=== PATIENT | female | born 1990 | race Caucasian/White ===

== ENCOUNTER → 2025-03-01 | Outpatient (CLI) | payer OTHER ==
--- NOTE | 2025-03-01 09:07 | CT ---
EXAMINATION TYPE: CT foot LT wo con CT DLP: 298.3 mGycm, Automated exposure control for dose reduction was used. DATE OF EXAM: 03/01/2025 8:24 AM COMPARISON: None CLINICAL INDICATION:Female, 34 years old with history of 699.192K closed fx fifth metatarsal; PHH, cl osed fx of the 5th metatarsal TECHNIQUE: Axial images were obtained of the left foot without the use of IV contrast. Additional co alex and sagittal reformatted images and soft tissue and bone window were obtained for review. 3-D r econstruction was created on a separate workstation. FINDINGS: Left foot fifth metatarsal base nondisplaced transverse oriented fracture with some callus formation. Fracture line is still visible. There is no evidence of subluxation or dislocation. No si gnificant soft tissue swelling or joint effusion is identified. No focal muscular atrophy or edema is identified. No radiopaque foreign body identified. IMPRESSION: Healing nondisplaced left foot fifth metatarsal base fracture with some callus formation. Fracture li ne is still visible. [facility], , 03/01/2025 9:04 AM
== END | disposition home or self-care (01) ==
LOC: RADCTMAIN 08:02
PROVIDERS: ATTEND Podiatrist
DX: S99.192K Other physeal fracture of left metatarsal, subsequent encounter for fracture with nonunion (principal); S92.355A Nondisplaced fracture of fifth metatarsal bone, left foot, initial encounter for closed fracture